=== PATIENT | male | born 1990 | race African-American/Black ===

== ENCOUNTER 2022-08-02 02:39 | Emergency (ER) | payer MEDICAID, OTHER ==
[~2022-08-02] VITALS: Ht 185.4 cm; Wt 94.5 kg
[2022-08-02 03:24] LABS: Basophils # (auto) 0 10 ^3/uL (0-0.2); Basophils % (auto) 0.5 % (0.0-2.0); Eosinophils # (auto) 0.1 10 ^3/uL (0-0.8); Eosinophils % (auto) 0.7 % (0.0-7.0); Hemoglobin 16.5 g/dL (13.5-17.5); Lymphocytes # (auto) 1.5 10 ^3/uL (0.4-5.4); Lymphocytes % (auto) 15.9 % (10.0-50.0); Mean Corpuscular Hemoglobin 32.4 pg (28.0-32.0); Mean Corpuscular Hgb Conc. 34.4 g/dL (32.0-36.0); Mean Corpuscular Volume 93.9 fL (80.0-100.0); Monocytes # (auto) 1.3 10 ^3/uL (0-1.3); Neutrophils # (auto) 6.5 10 ^3/uL (1.6-8.6); Neutrophils % (auto) 68.9 % (37.0-80.0); Nucleated Red Blood Cells % 0.1 %; Red Cell Distribution Width 13.2 % (11.8-14.3); White Blood Cell 9.4 10^3/uL (4.4-10.8)
[2022-08-02 03:39] LABS: Potassium 3.4 mmol/L (3.5-5.1)
[2022-08-02 03:40] LABS: Albumin 3.6 g/dL (3.4-5.0); Calcium 9.4 mg/dL (8.5-10.1)
[2022-08-02 03:42] LABS: Bilirubin, Total 0.4 mg/dL (0.2-1.0); Total Protein 9.1 g/dL (6.4-8.2)
[2022-08-02] MEDS ORDERED: cefTRIAXone 1GM/50ML D5W 50 ML IV ONE (07:15)
[2022-08-02] MEDS ORDERED: DexAMETHasone SOD PHOS 10MG/1ML VIAL INJ IV ONE (07:15)
[2022-08-02] MEDS ORDERED: AZITHROMYCIN 250 MG TAB PO ONE (07:15)
[2022-08-02] MEDS ORDERED: PRED20TA2 PO (07:16)
[2022-08-02] MEDS ORDERED: AZIT250T9 PO (07:16)
[2022-08-02] MEDS ORDERED: PROMETHAZINE HCL 25 MG/ML 1ML IV ONE (07:45)
[2022-08-02] MEDS ORDERED: guaiFENesin-CODEINE Liq 5 ML UD PO ONE (08:00)
[2022-08-02 08:08] VITALS: BP 130/60
== END 2022-08-02 08:39 | disposition home or self-care (01) ==
LOC: ER 02:39
DX: J18.9 Pneumonia, unspecified organism (principal); J45.901 Unspecified asthma with (acute) exacerbation; R07.89 Other chest pain
CPT/HCPCS: 36415; 71045; 71250; 74176; 80053; 84484; 85025; 93005; 96365; 96375; 99285; J0696; J1100; J2550

== ENCOUNTER 2022-09-15 08:45 | Emergency (ER) | payer MEDICAID ==
[~2022-09-15] VITALS: Ht 185.4 cm; Wt 97.0 kg
[~2022-09-15 08:45] MED LIST: AZIT250T9 PO; PRED20TA2 PO
[2022-09-15 09:06] LABS: Hematocrit 46.6 % (41.0-53.0); Mean Corpuscular Hemoglobin 32.2 pg (28.0-32.0); Mean Corpuscular Hgb Conc. 34.3 g/dL (32.0-36.0); Mean Corpuscular Volume 93.9 fL (80.0-100.0); Red Blood Cells 4.96 10^6/uL (4.5-5.90); Red Cell Distribution Width 14.2 % (11.8-14.3)
[2022-09-15] MEDS ORDERED: ONDANSETRON HCL 4 MG/2 ML VIAL IV ONE (09:15)
[2022-09-15] MEDS ORDERED: PANT40TA2 PO (09:15)
[2022-09-15] MEDS ORDERED: SODIUM CHLORIDE 0.9% 1,000 ML IV ONE (09:15)
[2022-09-15 09:25] LABS: Band Neutrophils % (manual) 0; Basophils % (manual) 0 (0.0-2.0); Blast Cells 0; Metamyelocytes % 0; Myelocytes % 0; Potassium 3.2 mmol/L (3.5-5.1); Promyelocytes % 0; Reactive Lymphocytes 0
[2022-09-15 09:26] LABS: Albumin 4.2 g/dL (3.4-5.0); Bilirubin, Total 0.8 mg/dL (0.2-1.0); Calcium 9.2 mg/dL (8.5-10.1); Total Protein 8.4 g/dL (6.4-8.2)
[2022-09-15] MEDS ORDERED: PANTOPRAZOLE 40 MG/10 ML VIAL INJ IV ONE (09:30)
[2022-09-15 09:39] LABS: Eosinophils % (manual) 1 (0-7); Lymphocytes % (manual) 25 (10.0-50.0); Monocytes % (manual) 10 (0-12)
[2022-09-15 12:52] LABS: Amphetamine Screen, Urine NEGATIVE (NEGATIVE); Barbiturate Scree,Urine NEGATIVE (NEGATIVE); Benzodiazephine Screen, Urine NEGATIVE (NEGATIVE); Cannabinoid Screen, Urine POSITIVE (NEGATIVE)
[2022-09-15 13:00] LABS: Cocaine Screen, Urine NEGATIVE (NEGATIVE); Opiate Scree,Urine NEGATIVE (NEGATIVE); Phencyclidine Screen, Urine NEGATIVE (NEGATIVE)
[2022-09-15] MEDS ORDERED: POTASSIUM EFFERVESENT TAB 25 MEQ PO ONE (15:00)
[2022-09-15 15:27] VITALS: BP 132/87
== END 2022-09-15 15:32 | disposition home or self-care (01) ==
LOC: ER 08:45
DX: K29.70 Gastritis, unspecified, without bleeding (principal); J45.909 Unspecified asthma, uncomplicated; F12.10 Cannabis abuse, uncomplicated; Z88.6 Allergy status to analgesic agent; Z79.899 Other long term (current) drug therapy
CPT/HCPCS: 36415; 74176; 80053; 80307; 85007; 85027; 86850; 86900; 86901; 96361; 96374; 96375; 99285; C9113; J2405; J7030